=== PATIENT | male | born 1950 | race Caucasian/White ===

== ENCOUNTER → 2019-06-24 07:32 | Outpatient (BNVA) | payer MEDICARE, SELFPAY | PROVIDERS: Family Provider Family Medicine; PCP Family Medicine; Visit Provider Psychiatry & Neurology Psychiatry | DX: F33.42 Major depressive disorder, recurrent, in full remission (principal); F41.0 Panic disorder [episodic paroxysmal anxiety] | CPT/HCPCS: 99213 ==

== ENCOUNTER → 2020-01-12 07:30 | Outpatient (BNVA) | payer MEDICARE, SELFPAY | PROVIDERS: Family Provider Family Medicine; PCP Family Medicine; Visit Provider Psychiatry & Neurology Psychiatry | DX: F33.42 Major depressive disorder, recurrent, in full remission (principal); F41.0 Panic disorder [episodic paroxysmal anxiety] | CPT/HCPCS: 99213 ==

== ENCOUNTER → 2020-02-27 10:10 | Outpatient (BNVA) | payer MEDICARE, OTHER, SELFPAY | PROVIDERS: Family Provider Family Medicine; PCP Family Medicine; Referring Provider Family Medicine; Visit Provider Urology | DX: R33.8 Other retention of urine (principal); R31.0 Gross hematuria; N52.9 Male erectile dysfunction, unspecified; R36.1 Hematospermia; N50.811 Right testicular pain; N50.812 Left testicular pain | CPT/HCPCS: 81003 ==

== ENCOUNTER 2020-06-14 11:02 | Outpatient (CLI) | payer MEDICARE, SELFPAY ==
[2020-06-14 14:38] LABS: Immunoglobulin IGA 134 mg/dL (70-400); Immunoglobulin IGG 1831 mg/dL (700-1600); Immunoglobulin IGM 35 mg/dL (40-230); Lactate Dehydrogenase 124 U/L (135-225)
--- NOTE | 2020-06-14 18:26 | ONC CON_ITS ---
Dr. Kaur New Patient Note Patient: Waqar Moreno Unit #: [id number]: 1950 Dicatated By: Erasmo Kaur M.D.Date of Visit: June 14, 2020 Onc MED New Patient/Consult Referring Physician: Dr. Pablito Russell M.D. History of Present Illness: Mr. Waqar Moreno, is a 69-year-old gentleman with newly diagnosed monoclonal gammopathy, as per patient and his he applied for life insurance and as a part of medical checkup his lab work-up showed elevated globulin level based on that his life insurance was denied and patient was asked to see his primary care and as a part of evaluation patient underwent serum protein electrophoresis and immunofixation on April 22, 2020 which confirmed monoclonal protein identified in the gamma region and immunofixation confirmed monoclonal IgG kappa protein and serum light chain assay shows kappa free light chain 22.82, lambda free chain 7.59 and kappa/lambda ratio was 3.01 which is elevated 24-hour urine protein collected on April 28, 2020 shows monoclonal protein identified in the gamma region, too faint to qualify. His CMP done on April 22, 2020 showed creatinine 1.11, calcium 8.7 and remaining electrolytes and LFTs within normal range. Patient denies any night sweats, denies any weight loss, denies any recurrent fever, his past medical history significant for chronic back pain due to work-related injury sustained in 2002, since then he has undergone 5 back surgeries, without much improvement no on chronic pain management. His past medical history significant for acquired hypothyroidism, essential hypertension, mixed hyperlipidemia Past medical history Past Medical History: Mr. Moreno's medical history consists of anxiety, chronic pain syndrome, degenerative disease of the spine, depression, gastroesophageal reflux disease, hyperlipidemia, hypertension, hypothyroidism, lumbar sponylosis, and vitamin d deficiency. Past Surgical History: Mr. Moreno's surgical/procedural history consists of laminectomy. Medications: ALPRAZolam 1 Tablet (of 1 mg) Oral PRN, Euthyrox 1 Tablet (of 50 mcg) Oral daily, Lisinopril 1 Tablet (of 10 mg) Oral daily PRN, Lovastatin 1 Tablet Oral daily, Omeprazole 1 Capsule (of 20 mg) Capsule Delayed Release Oral, oxyCODONE HCl 1 Tablet (of 10 mg) Oral PRN Allergies: HYDROcodone-Acetaminophen, HYDROmorphone HCl, and Morphine Sulfate. Social History: Mr. Moreno is and he is a disabled. Mr. Moreno no longer smokes. He has no history of drinking. Mr. Moreno reports the following support systems: lives with spouse, significant other, family, or friends. Family History: Mr. Moreno's mother at age 93: stroke. Mr. Moreno's father at age 73. Review Of Symptoms: Review of Systems is not available for this patient. Vital Signs: Performed on June 14, 2020 11:50: 8, 8, 28.74, 2.04 sq.m, 69 in, 97 %, 77 /min, 18 /min, 106/74 mm(hg), 97.5 F (LOW), and 194.6 lbs (HIGH). Performance Status: 2 - Ambulatory/capable of all self-care, unable to perform any work activities. Up and about more than 50% of waking hours. (ECOG) Physical Examination: ENMT - No mouth sores, no thrush, no jaundice, no cervical lymphadenopathy, No axillary lymphadenopathy, Respiratory - Lungs are clear to auscultation, Cardiovascular - Regular rate and rhythm of heart, Abdomen - Soft, bowel sounds present, Extremities - No visible edema. Lab/Imaging: Most recent lab results are not available for this patient. Impression: Monoclonal gammopathy per SPEP/immunofixation done on April 22, 2020 which confirmed monoclonal protein in the gamma region and immunofixation confirmed IgG kappa protein type, serum light chain assay confirmed elevated kappa free chain at 22.82 normal being 3.32-19.40, lambda free chain 7.59, kappa/lambda ratio 3.01 which is elevated as normal being 0.26-1.65. CMP done on April 22, 2020 showed normal values, Etiology unclear could be early plasma cell disorder or due to chronic inflammation or idiopathic or lymphoproliferative disorder like lymphoplasmacytic lymphoma Chronic back pain due to work-related injury in 2002 status post multiple back surgeries none chronic pain management Hypothyroidism Essential hypertension GERD Plan: Discussed with patient regarding his labs and causes of abnormal serum protein electrophoresis and abnormal serum light chain assay which could be due to underlying plasma cell disorder like plasmacytoma or multiple myeloma or amyloidosis or chronic inflammation or idiopathic or lymphoproliferative disorder like lymphoplasmacytic lymphoma., At this point we will proceed with bone survey and also schedule him for bone marrow biopsy and bone marrow confirmed increased plasma cells then will consider CT PET scan. In the meantime we will check quantitative immunoglobulins, serum LDH, beta-2 microglobulin level Patient return to clinic 1 week after bone marrow evaluation with CBC CMP Signed By: Erasmo Kaur M.D. <<Signature on File>>
[2020-06-15 07:47] LABS: PROTEIN, TOTAL 7.7 g/dL (6.1-8.1)
[2020-06-15 13:12] LABS: KAPPA LIGHT CHAIN, FREE, SERUM 30.2 mg/L (3.3-19.4); KAPPA/LAMBDA LIGHT CHAINS FREE 7.55 (0.26-1.65)
[2020-06-15 13:48] LABS: ABNORMAL PROTEIN BAND 1 1.5 g/dL (NONE DETECTED); ALBUMIN 4.3 g/dL (3.8-4.8); ALPHA 1 GLOBULIN 0.3 g/dL (0.2-0.3); ALPHA 2 GLOBULIN 0.7 g/dL (0.5-0.9); BETA 1 GLOBULIN 0.4 g/dL (0.4-0.6); BETA 2 GLOBULIN 0.3 g/dL (0.2-0.5); GAMMA GLOBULIN 1.7 g/dL (0.8-1.7)
== END 2020-06-14 11:03 | disposition home or self-care (01) ==
PROVIDERS: Family Provider Family Medicine; PCP Family Medicine; Visit Provider Internal Medicine Hematology & Oncology
DX: D47.2 Monoclonal gammopathy (principal); G89.29 Other chronic pain; M54.5 Low back pain; E03.9 Hypothyroidism, unspecified; I10 Essential (primary) hypertension; K21.9 Gastro-esophageal reflux disease without esophagitis; Z79.899 Other long term (current) drug therapy
CPT/HCPCS: 36415; 82784; 83615; 83883; 84155; 84165; 99204

== ENCOUNTER → 2020-06-24 07:55 | Outpatient (BNVA) | payer MEDICARE, SELFPAY | PROVIDERS: Family Provider Family Medicine; PCP Family Medicine; Visit Provider Psychiatry & Neurology Psychiatry | DX: F33.42 Major depressive disorder, recurrent, in full remission (principal); F41.0 Panic disorder [episodic paroxysmal anxiety] | CPT/HCPCS: 99214 ==

== ENCOUNTER 2020-06-28 09:24 | Outpatient (CLI) | payer MEDICARE, SELFPAY ==
--- NOTE | 2020-06-28 09:33 | XRR_ITS ---
PROCEDURE INFORMATION: Exam: XR Osseous Survey; Complete Axial And Appendicular Skeleton Exam date and time: 06/28/2020 9:40 AM Age: 69 years old Clinical indication: Condition or disease; Condition/disease: Monoclonal gammopathy; Prior surgery; Surgery type: Lumbar TECHNIQUE: Imaging protocol: Radiological examination. Complete osseous survey. Axial and appendicular skeleton. COMPARISON: No relevant prior studies available. FINDINGS: Skull: Normal Cervical spine: Diffuse degenerative disc disease. No lytic process. Chest/thorax including ribs: Unremarkable. Thoracic spine: Degenerative changes throughout. No lytic process. Lumbar spine:surgical plate and pedicle screws L3, L4 and L5. Interbody fusion L4-L5. No lytic process visualized. Pelvis: Surgical fusion of the sacroiliac joints. No lytic process. Right and left femur: Normal. No lytic process. Right and left humerus: Normal. No lytic process. XR/XR bone survey* [id number] IMPRESSION: No lytic process.
== END 2020-06-28 09:25 | disposition home or self-care (01) ==
LOC: RAD 09:27
PROVIDERS: PCP Family Medicine; Visit Provider Internal Medicine Hematology & Oncology
DX: D47.2 Monoclonal gammopathy (principal)
CPT/HCPCS: 77075

== ENCOUNTER 2020-07-06 09:19 | Day surgery (SDC) | payer MEDICARE, SELFPAY ==
[2020-07-02 13:13] VITALS: BMI 29.0
--- NOTE | 2020-07-06 09:50 | ANES.PREANE2 ---
Pre-Anesthetic Assessment Pre-Anesthetic Assessment: Height/Weight: Height 1.75 m Weight 89.358 kg Preop Diagnosis: leukocytosis Proposed Procedure: Operation Date: 07/06/20 11:00 Proposed Procedures p Bone Marrow Biospy With Aspiration(Not Applicable) - Erasmo Kaur MD Familial anesthetic complications: PONV Was Beta Lisbeth taken within 24 hours: N/A Was Clonidine taken within 24 hours: N/A Last intake: > 8hrs Social: Social History: No alcohol and No tobacco Exam: Pre-Anes Outpt Exam: alert, oriented x 3, clear to auscultation bilaterally and regular rate & rhythm Airway: Cervical ROM: WNL (cervical disc disease) MP: 3 Dentition: Partials Additional comments: caban CV/HEM: CV/HEM: HTN GI: GI: GERD Metabolic: Metabolic: Hyperlipidemia and Thyroid Musc/skel: Musc/skel: Lower Back Pain and OA/DJD Anesthetic Plan: ASA status: 3 Anesthesia: MAC Risk of > 500 ml blood loss (7ml/kg in children): No PFSH Anesthesia PFSH: Medical History (Updated 02/28/20 @ 09:34 by Karson Coe MD) Erectile dysfunction Gross hematuria Hematospermia Major depression, recurrent, full remission Pain in both testicles Panic disorder Renal cyst Surgical History (Updated 02/28/20 @ 09:34 by Karson Coe MD) H/O elbow surgery LEFT H/O inguinal hernia repair BILATERAL History of back surgery X3 Hx of appendectomy Hx of cholecystectomy Family History Father , AT AGE 73 Renal failure Mother , AT AGE 93 Stroke Social History Smoking and tobacco status: former smoker Alcohol intake: current Alcohol intake frequency: holidays/special occasions only Marital status: Current occupational status: retired and disabled History of recent travel: No Data Anesthesia Cardiac Studies: No Data to Display
[2020-07-06 11:18] VITALS: BP 115/83; PULSE 72; RESP 18; TEMP 36.5; O2SAT 95
[2020-07-06] MEDS: sodium chloride 0.9% 1,000 ML 30 ML IV (11:21)
[2020-07-06 11:45] LABS: Basophils % 0.7 %; Eosinophils % 0.9 %; Hematocrit 45.4 % (42.0-52.0); Hemoglobin 15.5 g/dL (11.7-16.6); Lymphocytes # 1.6 10^3/uL (0.8-4.8); Lymphocytes % 37.6 %; Mean Corpuscular HGB Conc 34.1 g/dL (30.0-36.0); Mean Corpuscular Hemoglobin 30.6 pg (28.0-34.0); Mean Corpuscular Volume 89.5 fL (80-94); Mean Platelet Volume 10.5 fL (7.4-10.4); Monocytes # 0.4 10^3/uL (0.2-0.9); Monocytes % 10.1 %; Neutrophils # 2.19 10^3/uL (1.8-7.7); Neutrophils % 50.5 %; Nucleated Red Blood Cells % 0 %; Platelet Count 158 10^3/cmm (130-400); Red Blood Count 5.07 10^6/uL (4.1-5.3); Red Cell Distribution Width 12.4 % (12.1-15.1); White Blood Count 4.3 10^3/uL (4.0-10.0)
--- NOTE | 2020-07-06 16:15 | PM.BMB ---
Bone Marrow Biopsy Bone Marrow Biopsy: I was consulted by [] office regarding bone marrow biopsy on []. Briefly, the patient is a [] year old [] with []. In the Outpatient Services Department, with nursing staff and laboratory technologists in attendance, the procedure was discussed with the patient. Appropriate consent form had been signed. Appropriate alternatives, benefits and risks of procedure were discussed with the patient and he was pre-operatively assessed with a history and physical by myself and cleared for the biopsy procedure. The patient did request IV sedation and that was provided by the Anesthesia Department. Under aseptic condition right posterior iliac area was cleaned and prepped, local anesthesia was given and about 10 cc of bone marrow aspirate and core biopsy was obtained, patient tolerated procedure well, specimen was sent for routine histopathology and myeloma panel and flow cytometry/cytogenetics. Postprocedure nursing instructions were given. Thank you for allowing me to participate in this patient's care and diagnosis. 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
[2020-07-06 16:19] VITALS: BP 111/79; PULSE 70; RESP 16; TEMP 36.1; O2SAT 95
[2020-07-06 16:30] VITALS: BP 115/86; PULSE 64; RESP 18; O2SAT 96
--- NOTE | 2020-07-06 17:08 | ANE.PACU2 ---
Inpatient post-anesthesia follow up: Airway intact: Yes Vital signs: Temperature 97 F Pulse Rate 64 Respiratory Rate 18 Blood Pressure 115/86 Pulse Oximetry 96 Oxygen Delivery Me thod Room Air Oxygen Flow Rate Fraction of Inspir ed Oxygen Hydration adequate: Yes Nausea and vomiting: No Pain level: 1 Mental status: Baseline
[2020-07-08 06:02] LABS: Miscellaneous Test See Scanned Lab Rpt
== END 2020-07-06 16:40 | disposition home or self-care (01) ==
PROVIDERS: PCP Family Medicine; Visit Provider Internal Medicine Hematology & Oncology
PROC: 07DT3ZX Extraction of Bone Marrow, Percutaneous Approach, Diagnostic (ICD-10-PCS; CPT 38222; principal; 2020-07-06 11:00)
DX: D72.829 Elevated white blood cell count, unspecified (principal); I10 Essential (primary) hypertension; K21.9 Gastro-esophageal reflux disease without esophagitis; E78.5 Hyperlipidemia, unspecified; Z87.891 Personal history of nicotine dependence
CPT/HCPCS: 36415; 38222; 85025; 88237; 88264; 88305; 88374; 96360; 96361; J2704; J3490; J7030

== ENCOUNTER 2020-07-30 07:38 | Outpatient (CLI) | payer MEDICARE, SELFPAY ==
--- NOTE | 2020-07-30 12:32 | ONC FU_ITS ---
Dr. Kaur follow up note Patient: Waqar Moreno Unit #: [id number]: 1950 Dicatated By: Erasmo Kaur M.D.Date of Visit:Jul 30, 2020 Onc Med Follow-up/Prog Note History of Present Illness: Mr. Waqar Moreno, is a 70-year-old gentleman with newly diagnosed monoclonal gammopathy, as per patient and his he applied for life insurance and as a part of medical checkup his lab work-up showed elevated globulin level based on that his life insurance was denied and patient was asked to see his primary care and as a part of evaluation patient underwent serum protein electrophoresis and immunofixation on April 22, 2020 which confirmed monoclonal protein identified in the gamma region and immunofixation confirmed monoclonal IgG kappa protein and serum light chain assay shows kappa free light chain 22.82, lambda free chain 7.59 and kappa/lambda ratio was 3.01 which is elevated 24-hour urine protein collected on April 28, 2020 shows monoclonal protein identified in the gamma region, too faint to qualify. His CMP done on April 22, 2020 showed creatinine 1.11, calcium 8.7 and remaining electrolytes and LFTs within normal range. Patient denies any night sweats, denies any weight loss, denies any recurrent fever, his past medical history significant for chronic back pain due to work-related injury sustained in 2002, since then he has undergone 5 back surgeries, without much improvement no on chronic pain management. His past medical history significant for acquired hypothyroidism, essential hypertension, mixed hyperlipidemia Bone marrow evaluation done on July 06, 2020 shows presence of trilineage hematopoiesis and does not demonstrate significant increased plasma cells, flow cytometry showed no overtly aberrant myeloid, lymphoid or plasma cell population. 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 Repeat SPEP on July 28, 2020 showed restricted M spike in the gamma region, immunofixation consistent with IgG type, quantitative immunoglobulin showed IgG 1792 normal being 600-1540, IgM 34 IgA 134, Serum light chain assay showed kappa light chain 27.3 normal being 3.3-19.4, lambda 4.4 kappa/lambda ratio 6.20, LDH 96 Came for follow-up, denies any specific complaints, no fever chills, no nausea or vomiting, no diarrhea or constipation, no new bony pains, patient tolerated bone marrow evaluation well, now he is here to discuss the findings and further planning Medications: ALPRAZolam 1 Tablet (of 1 mg) Oral PRN, Baclofen (10 mg) Tablet Oral b.i.d., Euthyrox 1 Tablet (of 50 mcg) Oral daily, Lisinopril 1 Tablet (of 10 mg) Oral daily PRN, Lovastatin 1 Tablet Oral daily, Omeprazole 1 Capsule (of 20 mg) Capsule Delayed Release Oral, oxyCODONE HCl 1 Tablet (of 10 mg) Oral PRN Allergies: HYDROcodone-Acetaminophen, HYDROmorphone HCl, and Morphine Sulfate. Review of Systems: Review of Systems is not available for this patient. Vital Signs: Performed on Jul 30, 2020 08:27 Height - 69.00 in Weight - 192.6 lbs (LOW) BSA - 2.03 sq.m BMI - 28.44 Temperature - 96.7 F (LOW) Pulse - 58 /min (LOW) Respiration - 18 /min BP - 126/85 mm(hg) O2 Sat - 97 % Pain - 7 Fatigue - 6 Performance Status: 0 - Fully active, able to carry on all predisease activities without restrictions. (ECOG) Physical Examination: ENMT - No mouth sores, no thrush, no jaundice, No lymphadenopathy, Respiratory - Lungs are clear to auscultation, Cardiovascular - Regular rate and rhythm of heart, Abdomen - Soft, bowel sounds present, Extremities - No visible edema. Lab/Imaging: Most recent lab results are not available for this patient. Impression: Monoclonal gammopathy per SPEP/immunofixation done on April 22, 2020 which confirmed monoclonal protein in the gamma region and immunofixation confirmed IgG kappa protein type, serum light chain assay confirmed elevated kappa free chain at 22.82 normal being 3.32-19.40, lambda free chain 7.59, kappa/lambda ratio 3.01 which is elevated as normal being 0.26-1.65. CMP done on April 22, 2020 showed normal values, Etiology unclear could be early plasma cell disorder or due to chronic inflammation or idiopathic or lymphoproliferative disorder like lymphoplasmacytic lymphoma Chronic back pain due to work-related injury in 2002 status post multiple back surgeries none chronic pain management Hypothyroidism Essential hypertension GERD Plan: Discussed with patient regarding his labs, quantitative immunoglobulin levels shows mildly elevated IgG level, mildly low IgM, repeat SPEP shows persistent M spike in gamma region, serum light chain assay shows mildly elevated serum kappa light chains and ratio at 6.2 0 Clinically, patient doing well with no new signs symptoms, his bone marrow evaluation showed as per report suboptimal bone marrow although as per tech it was sufficient so we will discuss with pathology regarding further evaluation but report mention presence of trilineage hematopoiesis and does not demonstrate significant increase in plasma cells, flow cytometry showed no abnormality, cytogenetics shows loss of Y chromosome and FISH for myeloma shows negative for IGH/MAF fusion So based on bone marrow findings as well as lab work-up, patient has persistent M spike as well as abnormal serum light chain assay which shows ratio is around 6.2 so clinically, it appears he may have early or evolving plasma cell disorder but bone marrow evaluation showed no increase in plasma cell other possibility could be decreased excretion of serum light chains because of mild renal insufficiency, other possibility could be abnormal serum light chain due to chronic inflammation as patient has underlying arthritis and now being evaluated by senior health consultant. Patient has no B symptoms and No peripheral lymphadenopathy so lymphoproliferative disorder is less likely but will monitor At this point no further work-up rather observation patient will return to clinic in 3 months with CBC CMP SPEP/immunofixation/serum light chain assay Signed By: Erasmo Kaur M.D. <<Signature on File>>
== END 2020-07-30 07:39 | disposition home or self-care (01) ==
PROVIDERS: PCP Family Medicine; Visit Provider Internal Medicine Hematology & Oncology
DX: D47.2 Monoclonal gammopathy (principal); R74.8 Abnormal levels of other serum enzymes; M54.5 Low back pain; G89.29 Other chronic pain; E03.9 Hypothyroidism, unspecified; I10 Essential (primary) hypertension; K21.9 Gastro-esophageal reflux disease without esophagitis; Z79.899 Other long term (current) drug therapy
CPT/HCPCS: 99214

== ENCOUNTER → 2020-08-12 13:08 | Outpatient (BNVA) | payer MEDICARE, SELFPAY | PROVIDERS: PCP Family Medicine; Referring Provider Family Medicine; Visit Provider Orthopaedic Surgery | DX: M54.2 Cervicalgia (principal); M47.899 Other spondylosis, site unspecified | CPT/HCPCS: 72050 ==

== ENCOUNTER → 2020-08-20 08:23 | Outpatient (BNVA) | payer MEDICARE, SELFPAY | PROVIDERS: PCP Family Medicine; Referring Provider Orthopaedic Surgery; Visit Provider Anesthesiology Pain Medicine | DX: G89.29 Other chronic pain (principal); M48.02 Spinal stenosis, cervical region; M54.12 Radiculopathy, cervical region; M43.26 Fusion of spine, lumbar region; M54.9 Dorsalgia, unspecified; Z79.891 Long term (current) use of opiate analgesic | CPT/HCPCS: 99205 ==

== ENCOUNTER → 2020-10-19 10:41 | Outpatient (BNVA) | payer MEDICARE, SELFPAY | PROVIDERS: PCP Family Medicine; Visit Provider Internal Medicine Rheumatology | DX: M19.90 Unspecified osteoarthritis, unspecified site (principal); D89.2 Hypergammaglobulinemia, unspecified; Z79.899 Other long term (current) drug therapy; Z11.59 Encounter for screening for other viral diseases; Z11.1 Encounter for screening for respiratory tuberculosis; Z71.89 Other specified counseling; M54.5 Low back pain | CPT/HCPCS: 99204 ==

== ENCOUNTER 2020-10-19 12:51 | Outpatient (CLI) | payer MEDICARE, SELFPAY ==
--- NOTE | 2020-10-19 12:57 | XRR_ITS ---
PROCEDURE INFORMATION: Exam: XR Chest Exam date and time: 10/19/2020 12:57 PM Age: 70 years old Clinical indication: Other: Joint pain; Prior surgery; Surgery type: Back; Patient HX: --c/o bilat foot/hand pain for years. Checking for ra. ; Additional info: Z79.899 - other long term care administrator (current) drug therapy TECHNIQUE: Imaging protocol: XR of the chest. Views: 2 views. COMPARISON: No relevant prior studies available. FINDINGS: Lungs: No pneumonia or pulmonary edema. Pleural spaces: No pleural effusion or pneumothorax. Heart/Mediastinum: The heart is not enlarged. Vasculature: The descending thoracic aorta is tortuous. Bones/joints: Multilevel disc degeneration in the thoracic spine. Soft tissues: Small left epicardial fat pad. XR/XR chest 2V* [id number] IMPRESSION: No acute finding.
--- NOTE | 2020-10-19 12:57 | XRR_ITS ---
PROCEDURE INFORMATION: Exam: XR Right Foot Exam date and time: 10/19/2020 12:57 PM Age: 70 years old Clinical indication: Pain; Foot; Bilateral; Additional info: Z79.899 - other custodial (current) drug therapy TECHNIQUE: Imaging protocol: XR Right foot. Views: 3 or more views. COMPARISON: No relevant prior studies available. FINDINGS: Bones/joints: There is joint space narrowing, with near loss of the joint space, at the 1st metatarsophalangeal joint. This is associated with subchondral cyst formation and osteophyte formation. No fracture. No dislocation. Soft tissues: No acute soft tissue abnormality. 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
--- NOTE | 2020-10-19 12:57 | XRR_ITS ---
PROCEDURE INFORMATION: Exam: XR Left Hand Exam date and time: 10/19/2020 12:57 PM Age: 70 years old Clinical indication: Pain; Hand; Bilateral; Additional info: Z79.899 - other halfway (current) drug therapy TECHNIQUE: Imaging protocol: XR Left hand. Views: 3 or more views. COMPARISON: No relevant prior studies available. FINDINGS: Bones/joints: No fracture. No dislocation. There is joint space narrowing with subchondral sclerosis at the STT joint. Mild osteophyte formation at the 1st metacarpophalangeal joint and 2nd distal interphalangeal joint. Soft tissues: No acute soft tissue abnormality. XR/XR hand LT min 3V* [id number] IMPRESSION: Mild osteoarthritis.
--- NOTE | 2020-10-19 12:57 | XRR_ITS ---
PROCEDURE INFORMATION: Exam: XR Left Foot Exam date and time: 10/19/2020 12:57 PM Age: 70 years old Clinical indication: Pain; Foot; Bilateral; Additional info: Z79.899 - other long-term (current) drug therapy TECHNIQUE: Imaging protocol: XR Left foot. Views: 3 or more views. COMPARISON: No relevant prior studies available. FINDINGS: Bones/joints: No fracture. No dislocation. Minimal degenerative change at the 1st metatarsophalangeal joint. Soft tissues: No acute soft tissue abnormality. XR/XR foot LT min 3V* [id number] IMPRESSION: Minimal 1st metatarsophalangeal joint osteoarthritis.
--- NOTE | 2020-10-19 12:57 | XRR_ITS ---
PROCEDURE INFORMATION: Exam: XR Right Hand Exam date and time: 10/19/2020 12:57 PM Age: 70 years old Clinical indication: Pain; Hand; Bilateral; Additional info: Z79.899 - other retirement (current) drug therapy TECHNIQUE: Imaging protocol: XR Right hand. Views: 3 or more views. COMPARISON: No relevant prior studies available. FINDINGS: Bones/joints: No fracture. No dislocation. Subchondral cyst formation at the 1st carpometacarpal joint, 3rd proximal interphalangeal joint, and 1st metacarpophalangeal joint. Tiny osteophytes at the interphalangeal joint of the thumb. Soft tissues: No acute soft tissue abnormality. XR/XR hand RT min 3V* [id number] IMPRESSION: Mild osteoarthritis.
[2020-10-19 14:18] LABS: Basophils % 0.6 %; Eosinophils # 0.1 10^3/uL (0.0-0.8); Eosinophils % 1.9 %; Hemoglobin 15.3 g/dL (11.7-16.6); Lymphocytes # 2.4 10^3/uL (0.8-4.8); Lymphocytes % 46.4 %; Mean Corpuscular Volume 94.1 fl (80-94); Monocytes # 0.5 10^3/uL (0.2-0.9); Monocytes % 8.6 %; Neutrophils % 42.3 %; Nucleated Red Blood Cells % 0 %; Platelet Count 172 10^3/cmm (130-400); Red Blood Count 4.78 10^6/uL (4.1-5.3); White Blood Count 5.2 10^3/uL (4.0-10.0)
[2020-10-19 14:45] LABS: Alanine Aminotransferase 8 U/L (0-41); Albumin Level 4.3 g/dL (3.5-5.2); Alkaline Phosphatase 55 IU/L (40-130); Aspartate Amino Transferase 10 U/L (0-40); C Reactive Protein 1.2 mg/L (0.0-4.9); Globulin 3.5 g/dL (1.3-4.6); Glomerular Filtration Rate 66.6 mL/min (90-130); Total Bilirubin 0.4 mg/dL (0.15-1.2); Total Protein 7.8 g/dL (6.6-8.7)
[2020-10-19 15:04] LABS: Hepatitis B Core AB, Total Non-Reactive (Nonreactive); Hepatitis B Surface Antigen Non-Reactive (Nonreactive); Hepatitis C Virus Antibody Non-Reactive (Nonreactive)
[2020-10-19 15:16] LABS: Erythrocyte Sedimentation Rate 7 mm/hr (0-10)
[2020-10-21 10:33] LABS: HLA-B27 NEGATIVE (NEGATIVE)
[2020-10-21 14:53] LABS: Quantiferon Mitogen 8.31 IU/mL; Quantiferon Nil 0.02 IU/mL; Quantiferon TB Gold NEGATIVE (NEGATIVE)
== END 2020-10-19 12:52 | disposition home or self-care (01) ==
LOC: RAD 12:55
PROVIDERS: PCP Family Medicine; Visit Provider Internal Medicine Rheumatology
DX: M19.90 Unspecified osteoarthritis, unspecified site (principal); M45.9 Ankylosing spondylitis of unspecified sites in spine; Z79.899 Other long term (current) drug therapy; Z11.59 Encounter for screening for other viral diseases; Z11.1 Encounter for screening for respiratory tuberculosis
CPT/HCPCS: 36415; 71046; 73130; 73630; 80076; 82565; 85025; 85651; 86140; 86480; 86704; 86803; 86812; 87340

== ENCOUNTER → 2020-10-20 12:58 | Outpatient (BNVA) | payer MEDICARE, SELFPAY | PROVIDERS: PCP Family Medicine; Visit Provider Anesthesiology Pain Medicine | DX: G89.29 Other chronic pain (principal); M54.12 Radiculopathy, cervical region; M48.02 Spinal stenosis, cervical region; Z79.891 Long term (current) use of opiate analgesic | CPT/HCPCS: 62321; J1100 ==

== ENCOUNTER → 2020-12-06 11:12 | Outpatient (BNVA) | payer MEDICARE, SELFPAY | PROVIDERS: PCP Family Medicine; Referring Provider Family Medicine; Visit Provider Orthopaedic Surgery | DX: S49.91XA Unspecified injury of right shoulder and upper arm, initial encounter (principal); X58.XXXA Exposure to other specified factors, initial encounter | CPT/HCPCS: 73030 ==

== ENCOUNTER → 2020-12-09 07:44 | Outpatient (BNVA) | payer MEDICARE, SELFPAY | PROVIDERS: PCP Family Medicine; Visit Provider Psychiatry & Neurology Psychiatry | DX: F33.42 Major depressive disorder, recurrent, in full remission (principal); F41.0 Panic disorder [episodic paroxysmal anxiety] | CPT/HCPCS: 99213 ==

== ENCOUNTER → 2020-12-23 11:08 | Outpatient (BNVA) | payer MEDICARE, SELFPAY | PROVIDERS: PCP Family Medicine; Visit Provider Anesthesiology Pain Medicine | DX: G89.29 Other chronic pain (principal); M48.02 Spinal stenosis, cervical region; M54.12 Radiculopathy, cervical region; M79.604 Pain in right leg; M79.605 Pain in left leg; Z79.891 Long term (current) use of opiate analgesic; Z98.1 Arthrodesis status | CPT/HCPCS: 99214 ==

== ENCOUNTER 2020-12-25 15:15 | Inpatient (IN) | payer MEDICARE, SELFPAY ==
[2020-12-25 15:34] VITALS: BP 126/84; PULSE 61; RESP 18; TEMP 36.9; O2SAT 100; BMI 28.8
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
--- NOTE | 2020-12-25 16:48 | ECG_ITS ---
[facility] Test Date: 2020-12-25 Pat Name: Waqar Moreno Department: Room: Gender: Male Waist Presser: : 1950 Requested By: Michael Steven Order Number: [id number] Torres MD: Isatu Arrington M.D. Measurements Intervals [place] Rate: 70 P: 68 [place]: 196 QRS: 49 QRSD: 89 T: 71 QT: 386 QTc: 419 Interpretive Statements SINUS RHYTHM No previous ECG available for comparison Electronically Signed On 12-26-2020 13:24:47 TAPE DUPLICATOR by Isatu Arrington M.D. [id number]
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
[2020-12-25 17:22] LABS: Basophils % 0.3 %; Eosinophils # 0.1 10^3/uL (0.0-0.8); Eosinophils % 0.5 %; Lymphocytes # 1.2 10^3/uL (0.8-4.8); Lymphocytes % 11.8 %; Mean Corpuscular HGB Conc 33.3 g/dL (30.0-36.0); Mean Corpuscular Hemoglobin 31.7 pg (28.0-34.0); Mean Corpuscular Volume 95.2 fl (80-94); Mean Platelet Volume 9.7 fL (7.4-10.4); Monocytes # 0.7 10^3/uL (0.2-0.9); Monocytes % 6.4 %; Neutrophils # 8.27 10^3/uL (1.8-7.7); Neutrophils % 80.5 %; Nucleated Red Blood Cells % 0 %; Platelet Count 138 10^3/cmm (130-400); Red Blood Count 4.41 10^6/uL (4.1-5.3); Red Cell Distribution Width 12.2 % (12.1-15.1); White Blood Count 10.3 10^3/uL (4.0-10.0)
[2020-12-25 17:47] LABS: Alanine Aminotransferase 7 U/L (0-41); Albumin Level 4.1 g/dL (3.5-5.2); Alkaline Phosphatase 50 IU/L (40-130); Anion Gap 15.3 (5-19); Aspartate Amino Transferase 12 U/L (0-40); Blood Urea Nitrogen 17 mg/dL (8-23); Calcium 8.5 mg/dL (8.5-10.5); Carbon Dioxide 27 mmol/L (22-29); Chloride 101 mmol/L (98-107); Globulin 3.2 g/dL (1.3-4.6); Glomerular Filtration Rate 66.6 mL/min (90-130); Glucose 100 mg/dL (65-115); Osmolality Calculated 290 mOsm/kg (285-295); Potassium 4.3 mmol/L (3.5-5.1); Sodium 139 mmol/L (136-145); Total Bilirubin 0.3 mg/dL (0.15-1.2); Total Protein 7.3 g/dL (6.6-8.7)
[2020-12-25] MEDS: iohexol 300 mg/mL 100 mL Btl IV (18:01)
[2020-12-25 18:18] LABS: SARS Covid-2 Antigen Negative (Negative)
[2020-12-25] MEDS: tetanus-dipt-pertussis 0.5 mL SDV IM (18:41)
[2020-12-25] MEDS: diphenhydrAMINE 50 mg/mL SDV 1mL 25 MG IVP (18:41)
[2020-12-25] MEDS: HYDROmorphone 1 mg/mL INJ 1 mL IVP (18:44)
[2020-12-25 19:43] LABS: Add Urine Microscopic? NO; Charge for UA Resulting for Rev
[2020-12-25] MEDS: lidocaine 1% INJ 20 mL INTRADERMA (19:49)
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
[2020-12-25 20:23] LABS: Bilirubin Urine Neg (Negative); Blood Urine Neg (Negative); Glucose Urine UA Norm (Normal); Ketones Urine 1+ (Negative); Leukocyte Esterase Urine Negative (Negative); Nitrate Urine Negative (Negative); Protein Urine Neg (Negative); Urine Appearance Clear (CLEAR); Urine Color Yellow (Yellow); Urobilinogen Urine Norm (Negative); pH Urine 5 (5-7)
--- NOTE | 2020-12-25 20:39 | PC.NURSE ---
Pt would like to be notified when surgery is scheduled.
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
[2020-12-25 21:08] VITALS: BP 126/84; PULSE 78; RESP 18; O2SAT 99
[2020-12-25 21:37] VITALS: BP 153/83; PULSE 73; RESP 17; TEMP 36.9; O2SAT 100
[2020-12-25] MEDS: sodium chloride 0.9% 1,000 ML 75 ML IV (22:08)
[2020-12-25] MEDS: gabapentin 300 mg Capsule PO (22:13)
[2020-12-25 23:00] VITALS: RESP 18
[2020-12-25] MEDS: oxyCODONE-APAP 10-325 mg Tablet 1 TAB PO (23:00)
[2020-12-26] VITALS (18 sets, daily range): BP systolic 99–156; BP diastolic 66–99; PULSE 75–110; RESP 10–18; TEMP 36.5–38.1; O2SAT 92–100
--- NOTE | 2020-12-26 | SCC_ITS ---
Procedure Done: Left IM nail for subtrochanteric femur fracture 87.7 seconds of fluoroscopic guidance, for a cumulative dose of 10.45 mGy, was provided to Dr. Parikh by the radiology department. C-arm images of the left femur were saved for the patient's permanent record. [facility]
[2020-12-26 07:05] LABS: Basophils % 0.7 %; Eosinophils # 0.1 10^3/uL (0.0-0.8); Eosinophils % 0.8 %; Hematocrit 36.6 % (42.0-52.0); Hemoglobin 12.4 g/dL (11.7-16.6); Lymphocytes # 1.6 10^3/uL (0.8-4.8); Lymphocytes % 27.2 %; Mean Corpuscular HGB Conc 33.9 g/dL (30.0-36.0); Mean Corpuscular Hemoglobin 32.2 pg (28.0-34.0); Mean Corpuscular Volume 95.1 fl (80-94); Mean Platelet Volume 10.3 fL (7.4-10.4); Monocytes # 0.6 10^3/uL (0.2-0.9); Monocytes % 10.3 %; Neutrophils # 3.68 10^3/uL (1.8-7.7); Neutrophils % 60.8 %; Nucleated Red Blood Cells % 0 %; Platelet Count 136 10^3/cmm (130-400); Red Blood Count 3.85 10^6/uL (4.1-5.3); Red Cell Distribution Width 12.4 % (12.1-15.1)
[2020-12-26 07:08] LABS: INR 1.07 (0.8-1.2); Partial Thromboplastin Time 29.3 SECONDS (23.9-36.7)
[2020-12-26 07:19] LABS: Anion Gap 13.7 (5-19); Blood Urea Nitrogen 14 mg/dL (8-23); Carbon Dioxide 27 mmol/L (22-29); Chloride 101 mmol/L (98-107); Glomerular Filtration Rate 96.1 mL/min (90-130); Glucose 116 mg/dL (65-115); Magnesium 1.7 mg/dL (1.7-2.3); Osmolality Calculated 287 mOsm/kg (285-295); Phosphorus 2.8 mg/dL (2.5-4.5); Potassium 3.7 mmol/L (3.5-5.1); Sodium 138 mmol/L (136-145)
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
--- NOTE | 2020-12-26 08:00 | ANES.PREANE2 ---
Pre-Anesthetic Assessment Pre-Anesthetic Assessment: Height/Weight: Height 1.75 m Weight 88.451 kg Temp Pulse Resp BP Pulse Ox 100.5 F H 75 18 146/99 98 12/26/20 07:25 12/26/20 07:25 12/26/20 07:25 12/26/20 07:25 12/26/20 07:25 Preop Diagnosis: leukocytosis Proposed Procedure: Operation Date: 12/26/20 08:20 Proposed Procedures p LEFT HIP NAIL(Left) - Luis H Kati, DO Familial anesthetic complications: None Was Beta Lisbeth taken within 24 hours: N/A Was Clonidine taken within 24 hours: N/A Last intake: Intake Last Liquid Date 12/25/20 Last Liquid Time 23:55 Last Solid Date 12/25/20 Last Solid Time 23:55 Social: Social History: No alcohol and No tobacco Exam: Pre-Anes Outpt Exam: alert, oriented x 3, clear to auscultation bilaterally and regular rate & rhythm Airway: Cervical ROM: WNL MP: 3 Dentition: Partials Additional comments: Full caban. Patient has bulging cervical discs, states has numbness in b/l fingers and will need to have surgery, R arm is unusable.: however these symptoms are NOT exacerbated or provoked by cervical extension CV/HEM: CV/HEM: HTN GI: GI: GERD Metabolic: Metabolic: Thyroid Musc/skel: Musc/skel: Lower Back Pain Comments: multiple MSK complaints d/t remote injuries - back, etc. Chronic pain Anesthetic Plan: ASA status: 2 Anesthesia: General Risk of > 500 ml blood loss (7ml/kg in children): No Meds/Allergies Current Medications: Current Medications Generic Name Dose Route Start Last Admin Trade Name Janes PRN Reason Stop Dose Admin Atorvastatin Calci um 20 mg 12/26/20 09:00 12/26/20 07:25 Atorvastatin 40 Mg Tablet PO Not Given DAILY MEGAN Gabapentin 300 mg 12/25/20 21:37 12/26/20 07:25 Gabapentin 300 M g Capsule PO Not Given TID MEGAN Sodium Chloride 1,000 mls @ 75 ml s/hr 12/25/20 21:37 12/25/20 22:08 Sodium Chloride 0.9% IV 75 mls/hr .[id number] MEGAN Administration Levothyroxine Sodi um 50 mcg 12/26/20 09:00 12/26/20 07:25 Levothyroxine 50 Mcg Tablet PO Not Given DAILY MEGAN Oxycodone/Acetamin ophen 1 tab 12/25/20 21:37 12/25/20 23:00 Oxycodone-Apap 1 0-325 Mg Tablet PO 1 tab TID PRN Administration pain Pantoprazole Sodiu m 40 mg 12/26/20 09:00 12/26/20 07:[address] 40 Mg Tablet PO Not Given DAILY MEGAN Trazodone HCl 300 mg 12/26/20 09:00 12/26/20 07:26 Trazodone 150 Mg Tablet PO Not Given DAILY MEGAN PFSH Anesthesia PFSH: Medical History Erectile dysfunction Gross hematuria Hematospermia High risk medication use Immunization counseling Inflammatory arthritis Major depression, recurrent, full remission Pain in both testicles Panic disorder Paraproteinemia Psychiatric care Renal cyst Surgical History H/O elbow surgery LEFT H/O inguinal hernia repair BILATERAL History of back surgery X3 Hx of appendectomy Hx of cholecystectomy Family History Father , AT AGE 73 Renal failure Mother , AT AGE 93 Stroke Other Cancer Rheumatoid arthritis Denies family history of Diabetes Lupus Chronic kidney disease (CKD) Lung disease Hypertension Social History Alcohol intake: current Alcohol intake frequency: holidays/special occasions only Marital status: Current occupational status: retired and disabled History of recent travel: No Data Anesthesia CBC & Chem 7: 12/26/20 05:56 12/26/20 05:56 Other Labs: Laboratory Results - last 48 hr 12/25/20 12/25/20 12/25/20 17:14 17:14 17:50 WBC 10.3 H RBC 4.41 Hgb 14.0 Hct 42.0 MCV 95.2 H MCH 31.7 MCHC 33.3 RDW 12.2 Plt Count 138 MPV 9.7 Neut % (Auto) 80.5 Lymph % (Auto) 11.8 [place] % (Auto) 6.4 Eos % (Auto) 0.5 Baso % (Auto) 0.3 Neut # (Auto) 8.27 H Lymph # (Auto) 1.2 [place] # (Auto) 0.7 Eos # (Auto) 0.1 Baso # (Auto) 0.0 Nucleated RBC % (auto) 0 Nucleated RBCs # 0.0 PT INR APTT Sodium 139 Potassium 4.3 Chloride 101 Carbon Dioxide 27 Anion Gap 15.3 BUN 17 Creatinine 1.1 GFR Calculation 66.6 L Glucose 100 Calculated Osmolality 290 Calcium 8.5 Phosphorus Magnesium Total Bilirubin 0.3 AST 12 ALT 7 Alkaline Phosphatase 50 Total Protein 7.3 Albumin 4.1 Globulin 3.2 Urine Color Urine Appearance Urine pH Ur Specific [place] Urine Protein Urine Glucose (UA) Urine Ketones Urine Blood Urine Nitrate Urine Bilirubin Urine Urobilinogen Ur Leukocyte Esterase SARS-CoV-2 Ag (Rapid) Negative 12/25/20 12/26/20 12/26/20 18:59 05:56 05:56 WBC 6.0 RBC 3.85 L Hgb 12.4 Hct 36.6 L MCV 95.1 H MCH 32.2 MCHC 33.9 RDW 12.4 Plt Count 136 MPV 10.3 Neut % (Auto) 60.8 Lymph % (Auto) 27.2 [place] % (Auto) 10.3 Eos % (Auto) 0.8 Baso % (Auto) 0.7 Neut # (Auto) 3.68 Lymph # (Auto) 1.6 [place] # (Auto) 0.6 Eos # (Auto) 0.1 Baso # (Auto) 0.0 Nucleated RBC % (auto) 0 Nucleated RBCs # 0.0 PT 14.20 INR 1.07 APTT 29.3 Sodium Potassium Chloride Carbon Dioxide Anion Gap BUN Creatinine GFR Calculation Glucose Calculated Osmolality Calcium Phosphorus Magnesium Total Bilirubin AST ALT Alkaline Phosphatase Total Protein Albumin Globulin Urine Color Yellow Urine Appearance Clear Urine pH 5 Ur Specific [place] 1.020 Urine Protein Neg Urine Glucose (UA) Norm Urine Ketones 1+ H Urine Blood Neg Urine Nitrate Negative Urine Bilirubin Neg Urine Urobilinogen Norm Ur Leukocyte Esterase Negative SARS-CoV-2 Ag (Rapid) 12/26/20 05:56 WBC RBC Hgb Hct MCV MCH MCHC RDW Plt Count MPV Neut % (Auto) Lymph % (Auto) [place] % (Auto) Eos % (Auto) Baso % (Auto) Neut # (Auto) Lymph # (Auto) [place] # (Auto) Eos # (Auto) Baso # (Auto) Nucleated RBC % (auto) Nucleated RBCs # PT INR APTT Sodium 138 Potassium 3.7 Chloride 101 Carbon Dioxide 27 Anion Gap 13.7 BUN 14 Creatinine 0.8 GFR Calculation 96.1 Glucose 116 H Calculated Osmolality 287 Calcium 8.0 L Phosphorus 2.8 Magnesium 1.7 Total Bilirubin AST ALT Alkaline Phosphatase Total Protein Albumin Globulin Urine Color Urine Appearance Urine pH Ur Specific [place] Urine Protein Urine Glucose (UA) Urine Ketones Urine Blood Urine Nitrate Urine Bilirubin Urine Urobilinogen Ur Leukocyte Esterase SARS-CoV-2 Ag (Rapid) Cardiac Studies: No Data to Display
--- NOTE | 2020-12-26 09:13 | PM.OP ---
Operative Report Date of procedure: December 26, 2020 Pre-op Diagnosis: left subtrochanteric femur fracture Post-op diagnosis: same Procedure Done: Left IM nail for subtrochanteric femur fracture Surgeon: Luis Parikh Anesthesia: General Estimated blood loss (mL): 10 Condition: stable Disposition: PACU Procedure: Left IM nail for subtrochanteric femur fracture Patient brought the operative suite after undergoing anesthesia was placed onto the [place] table. The left leg was placed in a boot and attached to the [place] table. The right leg was placed on a pillow and coband to the other leg. All areas of impingement were well-padded. Traction and rotation were applied using C-arm guidance in order to facilitate reducing the subtrochanteric femur fracture. Once adequate reduction was had patient was then prepped and draped in normal sterile fashion. Skin incision was made proximal to the greater trochanter. Starting pin was inserted. Opening reamer was inserted and then the guidewire was placed. The nail length was measured to be 420. Canal was reamed to 13. A Artimi gamma nail size 11 length 420 was inserted. The lag screw pin was inserted into the center center position of the femoral head. 110 mm lag screw was placed. The locking bolts placed proximally. Attention was then brought to the distal end of the nail. 2 screws were placed into the distal locking holes. A 55 and 45 mm screw was placed. AP and lateral fluoroscopy ensured that the hardware and fracture were probe positions. Wounds were irrigated sterile dressings were applied after closing the wounds with Vicryl and linda.
--- NOTE | 2020-12-26 09:18 | XR_ITS ---
WS: [id number] Exam: XR femur LT min 2V* [id number] Date/Time of Exam: 12/26/2020 9:19 AM Reason For Exam: Left IM nail for subtrochanteric femur fracture Intraoperative C-arm images of the left femur are submitted for evaluation. There is internal orthopedic fixation involving a subtrochanteric fracture of the left femur. A long intramedullary erasmo and femoral neck impaction screw stabilize a fracture in good alignment for healin g. There is avulsion and separation of the lesser trochanter. XR/XR femur LT min 2V* [id number] IMPRESSION: 1. Satisfactory ORIF involving a subtrochanteric fracture of the left femur.
--- NOTE | 2020-12-26 09:52 | SUR.PHASEI ---
0912 pt awake alert talkative taking ice chips lt hip dressing x 3 D/I VSS milner to DD with yellow clear urine noted to tubing and bag. report called to floor , family updated by DR DOE and waiting in pt room.
--- NOTE | 2020-12-26 10:07 | PC.NURSE ---
1000 OR NOTE UP FROM OR VIA BED WITH BRANDAN RN AT SIDE - 023LNC - PT A&O - DENIES PAIN - AP RRR - LUNGS COARSE THROUGHOUT - ABD SOFT WITH NO DISTENTION - IV LEFT ARM WITH PUMP - X3 SITES TO LEFT LEG WITH PROXIMAL SITE NOTED TO HAVE SMALL AMOUNT OF SEROSANG DRAINAGE - 1ST ICE IN PLACE - PPP - [place] FOOT PUMPS IN PLACE - DR REYES CURRENTLY IN ROOM
[2020-12-26] MEDS: oxyCODONE-APAP 10-325 mg Tablet 1 TAB PO (10:40)
--- NOTE | 2020-12-26 11:32 | PM.PN ---
Subjective Subjective: Interval history: Seen and examined this morning. I saw him postop after his procedure. He is doing well denies any pain at the surgical site. States he is doing well. Vitals/I&O/Wt Last Vital Signs Temp 97.9 F 12/26/20 09:45 Pulse 96 12/26/20 09:45 Resp 18 12/26/20 10:40 BP 124/85 12/26/20 09:45 Pulse Ox 98 12/26/20 09:45 12/25/20 12/26/20 12/26/20 22:59 06:59 14:59 Intake Total 160 / 160 Output Total 200 / 200 40 / 40 Balance -200 / -200 120 / 120 Weight last 48 hrs Weight 88.451 kg Weight 88.451 kg Physical Exam Narrative: EXAM NARRATIVE: CONSTITUTIONAL: The patient is a normal appearing in no apparent distress. Alert oriented x3, family present at bedside. Seen postop. GENERAL: Patient in no acute distress. CARDIAC: Regular rate and rhythm. CHEST: Normal inspiratory effort, normal respiratory rate. Lungs clear to auscultation bilaterally. ABDOMEN: Soft and nontender. SKIN: Clear, warm and intact.. Neuro: Nonfocal exam. Did not check strength or sensation as patient got back from surgery 10 minutes ago. Left knee has sutures present in blood around the area. Surgical site covered with Band-Aid. Data : 12/26/20 05:56 12/26/20 05:56 A&P Assessment and plan (1) Closed intertrochanteric fracture of left hip: Status: Acute Qualifiers: Encounter type: initial encounter Fracture alignment: displaced Qualified Code(s): S72.142A - Displaced intertrochanteric fracture of left femur, initial encounter for closed fracture (2) Laceration of knee, left: Status: Acute Qualifiers: Encounter type: initial encounter Qualified Code(s): S81.012A - Laceration without foreign body, left knee, initial encounter (3) Chronic neck pain: Status: Acute Additional A&P Information Left hip fracture. complete displaced fracture through the left subtrochanteric femoral shaft with 6 cm overriding of the fracture fragments. dr Parikh is consulted. The patient is being [facility] to [facility]. We will continue pain management. Patient is postop. Patient had a left IM nail for subTrochanteric femur fracture. He is doing well. Will start clear liquids and advance diet as tolerated. Preoperative cardiac risk assessment. The patient does not have any history of coronary artery disease or CHF. Good functional status. METs above 4. EKG does not show any significant findings, no acute ischemia. In my opinion, the patient is ready for the surgery. No additional testing or treatments are required prior to the surgery. History of anxiety. We will resume his home medications. History of hypothyroidism and GERD. We will continue his home medications. DVT prophylaxis. Teds and SCDs. We will start DVT prophylaxis. CODE STATUS. He wants to be full code. The plan of care was discussed with the patient and his family. They verbalized understanding and agreement. Attestations Medical Necessity Statement*: > 24 hour stay. Will coordinate care with Dr. Parikh and discharge according to his recommendations. Medically patient is stable. 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
--- NOTE | 2020-12-26 13:05 | PC.NURSE ---
ROUNDING BOTH PT AND OT IN ROOM TO WORK WITH PT - PT DENIES CURRENT NEEDS
--- NOTE | 2020-12-26 13:54 | PC.NURSE ---
PT PREVIOUSLY UP WITH PT - AMBULATING IN [facility]LL - RETURNED TO BED
[2020-12-26] MEDS: baclofen 10 mg Tablet PO (14:10)
[2020-12-26] MEDS: gabapentin 300 mg Capsule PO ×2 (14:10→21:03)
--- NOTE | 2020-12-26 16:31 | ANE.PACU2 ---
Inpatient post-anesthesia follow up: Airway intact: Yes Vital signs: Temperature 97.7 F Pulse Rate 102 Respiratory Rate 16 Blood Pressure 130/82 Pulse Oximetry 97 Oxygen Delivery Me thod Room Air Oxygen Flow Rate 3 Fraction of Inspir ed Oxygen Hydration adequate: Yes Nausea and vomiting: No Pain level: 2
[2020-12-26] MEDS: acetaminophen 325 mg Tablet 650 MG PO (21:04)
[2020-12-26] MEDS: enoxaparin 40 mg/0.4 mL Syringe SUBCUT (21:04)
[2020-12-27] VITALS (7 sets, daily range): BP systolic 111–157; BP diastolic 68–90; PULSE 89–106; RESP 16–17; TEMP 36.6–37.7; O2SAT 91–97
[2020-12-27] MEDS: sodium chloride 0.9% 1,000 ML 75 ML IV (06:38)
--- NOTE | 2020-12-27 07:08 | PM.PN ---
Subjective Subjective: Interval history: patient doing well ambulatinef Vitals/I&O/Wt Last Vital Signs Temp 99.8 F H 12/27/20 04:00 Pulse 92 12/27/20 04:00 Resp 16 12/27/20 04:00 BP 111/68 12/27/20 04:00 Pulse Ox 94 12/27/20 04:00 12/26/20 12/27/20 12/27/20 22:59 06:59 14:59 Intake Total 180 / 1820 60 / 1880 Output Total 1500 / 1540 1300 / 2840 Balance -1320 / 280 -1240 / -960 Weight last 48 hrs Weight 195 lb Weight 195 lb Physical Exam Narrative: EXAM NARRATIVE: dressing cdi Data : 12/26/20 05:56 12/26/20 05:56 A&P Assessment and plan (1) Closed intertrochanteric fracture of left hip: left IM nail POD#1 OK to d/c from ortho stand point Status: Acute Qualifiers: Encounter type: initial encounter Fracture alignment: displaced Qualified Code(s): S72.142A - Displaced intertrochanteric fracture of left femur, initial encounter for closed fracture Attestations Medical Necessity Statement*: per primary service Coding Level of Care Code Acute Campus Security Officer for [facility] Diagnoses Closed intertrochanteric fracture of left hip S72.142A Encounter type: initial encounter Fracture alignment: displaced
[2020-12-27] MEDS: oxyCODONE-APAP 10-325 mg Tablet 1 TAB PO (09:32)
[2020-12-27] MEDS: levothyroxine 50 mcg Tablet PO (09:33)
[2020-12-27] MEDS: gabapentin 300 mg Capsule PO (09:33)
[2020-12-27] MEDS: duloxetine 60 mg Capsule 120 MG PO (09:33)
[2020-12-27] MEDS: pantoprazole DR 40 mg Tablet PO (09:33)
[2020-12-27] MEDS: atorvastatin 40 mg Tablet 20 MG PO (09:33)
[2020-12-27] MEDS: lisinopril 10 mg Tablet PO (09:33)
[2020-12-27] MEDS: acetaminophen 325 mg Tablet 650 MG PO (11:25)
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
== END 2020-12-27 13:33 | disposition home or self-care (01) | DRG 482 ==
LOC: ER 19:54 → MEDSURG 21:35
PROVIDERS: Orthopaedic Surgery; Admitting Provider Internal Medicine; Emergency Provider Emergency Medicine; PCP Family Medicine; Visit Provider Internal Medicine
PROC: 0QS706Z Reposition Left Upper Femur with Intramedullary Internal Fixation Device, Open Approach (ICD-10-PCS; CPT 27236; principal; 2020-12-26 08:00)
DX: S72.142A Displaced intertrochanteric fracture of left femur, initial encounter for closed fracture (principal); V48.2XXA Person on outside of car injured in noncollision transport accident in nontraffic accident, initial encounter; G89.29 Other chronic pain; M54.50 Low back pain, unspecified; M54.2 Cervicalgia; N52.9 Male erectile dysfunction, unspecified; F33.42 Major depressive disorder, recurrent, in full remission; F41.0 Panic disorder [episodic paroxysmal anxiety]; F41.9 Anxiety disorder, unspecified; E03.9 Hypothyroidism, unspecified; K21.9 Gastro-esophageal reflux disease without esophagitis; Z79.891 Long term (current) use of opiate analgesic
CPT/HCPCS: 36415; 71260; 72170; 73501; 73552; 73590; 74177; 76000; 80048; 80053; 81003; 83735; 84100; 85025; 85610; 85730; 87426; 90471; 90715; 93005; 96372; 96374; 96375; 97110; 97161; 97165; 97530; 99214; 99285; C1713; J0690; J1170; J1200; J1650; J2405; J2704; J3010; J7030; Q9967

== ENCOUNTER → 2021-01-18 11:01 | Outpatient (BNVA) | payer MEDICARE, SELFPAY | PROVIDERS: PCP Family Medicine; Visit Provider Physician Assistant | DX: Z98.890 Other specified postprocedural states (principal); S72.142D Displaced intertrochanteric fracture of left femur, subsequent encounter for closed fracture with routine healing; X58.XXXD Exposure to other specified factors, subsequent encounter | CPT/HCPCS: 73552 ==

== ENCOUNTER → 2021-02-15 13:11 | Outpatient (BNVA) | payer MEDICARE, SELFPAY | PROVIDERS: PCP Family Medicine; Visit Provider Physician Assistant | DX: Z98.890 Other specified postprocedural states (principal); S72.142A Displaced intertrochanteric fracture of left femur, initial encounter for closed fracture; X58.XXXA Exposure to other specified factors, initial encounter | CPT/HCPCS: 73502; 73552 ==

== ENCOUNTER → 2021-04-28 13:16 | Outpatient (BNVA) | payer MEDICARE, SELFPAY | PROVIDERS: PCP Family Medicine; Visit Provider Physician Assistant | DX: S72.142D Displaced intertrochanteric fracture of left femur, subsequent encounter for closed fracture with routine healing (principal); X58.XXXD Exposure to other specified factors, subsequent encounter; Z98.890 Other specified postprocedural states | CPT/HCPCS: 73502; 73552 ==

== ENCOUNTER → 2021-05-04 08:31 | Outpatient (BNVA) | payer MEDICARE, SELFPAY | PROVIDERS: PCP Family Medicine; Visit Provider Anesthesiology Pain Medicine | DX: G89.29 Other chronic pain (principal); M25.511 Pain in right shoulder; M48.02 Spinal stenosis, cervical region; M54.12 Radiculopathy, cervical region; F12.90 Cannabis use, unspecified, uncomplicated; Z79.891 Long term (current) use of opiate analgesic | CPT/HCPCS: 99214 ==

== ENCOUNTER → 2021-05-16 14:15 | Outpatient (BNVA) | payer MEDICARE, SELFPAY | PROVIDERS: PCP Family Medicine; Visit Provider Anesthesiology Pain Medicine | DX: F17.210 Nicotine dependence, cigarettes, uncomplicated (principal); Z79.891 Long term (current) use of opiate analgesic; M54.12 Radiculopathy, cervical region | CPT/HCPCS: 62321; J1030; J3490 ==

== ENCOUNTER → 2021-05-25 07:18 | Outpatient (BNVA) | payer MEDICARE, SELFPAY | PROVIDERS: PCP Family Medicine; Visit Provider Psychiatry & Neurology Psychiatry | DX: F33.42 Major depressive disorder, recurrent, in full remission (principal); F41.0 Panic disorder [episodic paroxysmal anxiety] | CPT/HCPCS: 99214 ==

== ENCOUNTER → 2021-05-30 08:45 | Outpatient (BNVA) | payer MEDICARE, SELFPAY | PROVIDERS: PCP Family Medicine; Visit Provider Anesthesiology Pain Medicine | DX: G89.29 Other chronic pain (principal); M48.02 Spinal stenosis, cervical region; M54.12 Radiculopathy, cervical region; M43.26 Fusion of spine, lumbar region; M79.601 Pain in right arm; M79.602 Pain in left arm; F17.210 Nicotine dependence, cigarettes, uncomplicated; Z79.891 Long term (current) use of opiate analgesic | CPT/HCPCS: 99214 ==

== ENCOUNTER 2021-07-18 13:57 | Outpatient (CLI) | payer MEDICARE, SELFPAY ==
--- NOTE | 2021-07-18 15:15 | MR_ITS ---
WS: [id number] MRI CERVICAL SPINE NONCONTRAST HISTORY: M54.12 - Radiculopathy, cervical region, RIGHT shoulder pain and arm. COMPARISON: 06/18/2020 Technique: Multiplanar, multisequence noncontrast imaging of the cervical spine. Mild increase in cervical lordosis and curvature. Disc spaces are moderately narrowed throughout with osteophytic ridging around the vertebral bodies and facet joint arthritis. Signal within the cervical cord is normal. Visualized posterior fossa is unremarkable. Craniocervical junction, C1 and C2 relationship, odontoid process and soft tissues are normal. C2-C3: Moderate diffuse osteophytic ridging and annular disc bulge with mild facet arthritis. There i s mild bilateral foraminal stenosis. C3-C4: Diffuse osteophytic ridging is asymmetric to the LEFT. There is a small disc osteophyte contac ts extending into the LEFT foramen, predominantly osteophyte causing a moderate LEFT foraminal stenos is although only mild on the RIGHT. Mild progression of LEFT foraminal stenosis since the prior study . C4-C5: Diffuse osteophytic ridging and annular disc bulging. Predominantly osteophytosis causing a mi ld central and moderate bilateral foraminal stenosis. Mild bilateral facet joint arthritis. Slightly greater narrowing of the LEFT foramen. C5-C6: Mild annular disc bulging and osteophytic ridging with facet joint arthritis. Moderate bilater al foraminal stenosis. There is significant encroachment into the proximal foramina bilaterally but g reatest on the RIGHT causing complete effacement of fat surrounding the RIGHT C6 nerve root. C6-C7: Diffuse annular disc bulging and osteophytic ridging. No central stenosis. Mild facet joint ar thritis. Mild bilateral foraminal stenosis. C7-T1: Normal. Paraspinal soft tissue are normal. MR/MR cervical spin wo con* [id number] IMPRESSION: 1. Mild progression of degenerative disc disease and osteophytosis since 021. 2. Moderate bilateral foraminal stenosis at C4-5, C5-6 and on the LEFT at C3-4 . Significant encroachment on the exiting nerve roots at each level. 3. Diffuse facet joint arthritis throughout the cervical spine. 4. Mild central stenosis at C4-5.
== END 2021-07-18 13:58 | disposition home or self-care (01) ==
PROVIDERS: PCP Family Medicine; Visit Provider Anesthesiology Pain Medicine
DX: M54.12 Radiculopathy, cervical region (principal)
CPT/HCPCS: 72141

== ENCOUNTER → 2021-07-19 10:41 | Outpatient (BNVA) | payer MEDICARE, SELFPAY | PROVIDERS: PCP Family Medicine; Visit Provider Anesthesiology Pain Medicine | DX: G89.29 Other chronic pain (principal); M48.02 Spinal stenosis, cervical region; M54.12 Radiculopathy, cervical region; M79.601 Pain in right arm; M79.602 Pain in left arm; F12.90 Cannabis use, unspecified, uncomplicated; Z79.891 Long term (current) use of opiate analgesic | CPT/HCPCS: 99214 ==

== ENCOUNTER → 2021-08-02 13:30 | Outpatient (BNVA) | payer MEDICARE, SELFPAY | PROVIDERS: PCP Family Medicine; Visit Provider Anesthesiology Pain Medicine | DX: Z79.891 Long term (current) use of opiate analgesic (principal); M47.812 Spondylosis without myelopathy or radiculopathy, cervical region | CPT/HCPCS: 64490; 64491; J3490 ==

== ENCOUNTER 2021-08-22 12:13 | Emergency (ER) | payer MEDICARE, SELFPAY ==
[2021-08-22 12:29] VITALS: BP 158/92; PULSE 63; RESP 18; TEMP 36.9; O2SAT 96; BMI 28.8
--- NOTE | 2021-08-22 13:29 | W.ED.ALLEREA ---
HPI - Allergic Reaction General: Chief complaint: Allergic Reaction Stated complaint: several Wasp Stings Time Seen by Provider: 08/22/21 13:04 History of Present Illness: HPI narrative: Patient is a 71-year-old male comes to the ED with right arm swelling and pain after wasp sting. Patient says last night he was out on his porch and couple wasp stung his right forearm. This morning he woke up with right arm swelling, redness and pain. He has been stung by wasp in the past and says he has not had any allergic reactions. Denies any other symptoms such as fever, chills, nausea/vomiting, shortness of breath, lip or tongue swelling or any trouble breathing. Associated symptoms: Deny abdominal pain, nausea or vomiting Review of Systems Const: Denies: fever(s), chills or fatigue Eyes: Denies: change in vision or eye discomfort ENMT: Denies: throat pain, odynophagia, nasal discharge or nasal congestion Card: Denies: chest pain, palpitations, edema, swelling of feet/ankles, dyspnea on exertion or orthopnea Resp: Denies: dyspnea, productive cough or non-productive cough GI: Denies: abdominal pain, nausea, vomiting, diarrhea, constipation or hematochezia : Denies: flank pain, difficulty urinating, dysuria or hematuria Musc: Denies: neck pain, back pain or extremity swelling Skin/Breast: Reports: rash (Erythema, swelling and tenderness of right forearm); Denies: new lesions Neuro: Denies: headache(s), numbness in extremities or weakness in extremities PFSH ED PFSH: Medical History Erectile dysfunction Gross hematuria Hematospermia High risk medication use Immunization counseling Inflammatory arthritis Major depression, recurrent, full remission Pain in both testicles Panic disorder Paraproteinemia Psychiatric care Renal cyst Surgical History H/O elbow surgery LEFT H/O inguinal hernia repair BILATERAL History of back surgery X3 Hx of appendectomy Hx of cholecystectomy Family History Father , AT AGE 73 Renal failure Mother , AT AGE 93 Stroke Other Cancer Rheumatoid arthritis Denies family history of Diabetes Lupus Chronic kidney disease (CKD) Lung disease Hypertension Social History Smoking and tobacco status: current every day smoker (MARIJUANA) Alcohol intake: current Alcohol intake frequency: holidays/special occasions only Alcohol type: beer Marital status: Current occupational status: retired and disabled History of recent travel: No Physical Exam Const: COMMON NORMALS: no acute distress, patient oriented x3 and alert GENERAL APPEARANCE: cooperative and comfortable HENMT: COMMON NORMALS: normocephalic HEAD & SCALP: normocephalic MOUTH: Normal oral and palatal mucosa present THROAT: posterior oropharynx normal and uvula midline Neck/C-Spine: COMMON NORMALS: supple GENERAL: Yes normal visual inspection Resp: COMMON NORMALS: normal respiratory effort, No retractions, No use of accessory muscles and clear to auscultation bilaterally AUSCULTATION: clear to auscultation bilaterally Cardio: COMMON NORMALS: regular rate, regular rhythm, S1 normal heart sound present, S2 normal heart sound present, No gallops present (Cardio), No clicks present (Cardio), No murmurs present (Cardio) and Peripheral pulses 2+ throughout RATE: regular rate RHYTHM: regular rhythm HEART SOUNDS: S1 normal heart sound present and S2 normal heart sound present PERIPHERAL PULSES: Peripheral pulses 2+ throughout GI: COMMON NORMALS: Normal to inspection, nondistended, normoactive bowel sounds present, Soft to palpation, non-tender and no masses PALPATION: Yes Soft to palpation : COMMON NORMALS: Yes no CVA tenderness BLADDER/KIDNEY EXAM: Yes no CVA tenderness Back/Pelvis: COMMON NORMALS: no CVA tenderness Extremity: NARRATIVE EXTREMITY EXAM: Right forearm?swelling in forearm and hand. Some erythema and warmth noted around wasp sting. Rash is tender to palpation. GENERAL: Yes normal exam except as noted Neuro: COMMON NORMALS: patient oriented x3 and moves all extremities SENSORIUM/ORIENTATION: Yes alert Skin: NARRATIVE SKIN EXAM: Right forearm?swelling in forearm and hand. Some erythema and warmth noted around wasp sting. Rash is tender to palpation. GENERAL SKIN EXAM: dry skin Course Vital Signs: Vital signs: Vital Signs Temperature 98.4 F 08/22/21 12:29 Pulse Rate 63 08/22/21 12:29 Respiratory Rate 18 08/22/21 12:29 Blood Pressure 158/92 08/22/21 12:29 Pulse Oximetry 96 08/22/21 12:29 MDM - Allergic Reaction Medical Decision Making Patient is a 71-year-old male comes to the ED with a wasp sting on right forearm. He has some erythema, warmth and swelling of the skin surrounding while staying. He also has some tenderness to palpation. Denies any allergy to wasp stings.Denies any other symptoms such as fever, chills, nausea/vomiting, shortness of breath, lip or tongue swelling or any trouble breathing. Vitals are stable. Patient diagnosed with sting from wasp, hornet or bee. He was given a dose of Solu-Medrol here in the ED and discharged home with a prescription for prednisone and cephalexin. Follow-up with PCP in the next 7 to 10 days for reevaluation. Return to ED precautions given. Patient stood agree with plan. Discharge Plan Discharge Patient Disposition: Home Clinical Impression: Sting from hornet, wasp, or bee Qualifiers: Encounter type: initial encounter Injury intent: accidental or unintentional Qualified Code(s): T63.451A - Toxic effect of venom of hornets, accidental (unintentional), initial encounter Condition: Stable Prescriptions: New cephalexin 500 mg capsule 500 mg PO Q6H 7 Days Qty: 28 0RF Medrol (Anastacio) 4 mg tablets,dose pack See Rx Instructions .ROUTE .COMPLEX Qty: 21 0RF Rx Instructions: orally per package directions No Action fluticasone prp-sod.chl,bicarb 50 mcg- 0.9 % kit,spray suspension and spray 1 spray intranasal .PRN PRN (Reason: Allergy Symptoms) 0RF lovastatin 20 mg tablet 20 mg PO DAILY 0RF lisinopril 10 mg tablet 10 mg PO DAILY 0RF levothyroxine 50 mcg tablet 50 mcg PO DAILY 0RF omeprazole 20 mg capsule,delayed release(DR/EC) 20 mg PO DAILY 0RF MARIJUANA PO 0RF bupivacaine (PF) 0.25 % (2.5 mg/mL) solution 1 ml Infiltration ONCE Qty: 1 0RF alprazolam [Xanax] 1 mg tablet 1 mg PO QID PRN (Reason: Anxiety) Qty: 120 5RF methylprednisolone acetate [Depo-Medrol] 80 mg/mL suspension 80 mg IM ONCE Qty: 1 0RF bupivacaine (PF) 0.25 % (2.5 mg/mL) solution 2 ml Infiltration ONCE Qty: 1 0RF trazodone 300 mg Tablet 300 mg PO DAILY 0RF Percocet 10-325 mg tablet 1 tab PO TID PRN (Reason: pain) Qty: 30 0RF Senna-S 8.6-50 mg tablet 1 tab-cap PO DAILY Qty: 20 0RF Percocet 10-325 mg tablet 1 tab PO Q8H Qty: 10 0RF aspirin 325 mg capsule 325 mg PO DAILY Qty: 14 0RF Discharge Orders: Discharge ED (Routine); Ordered 08/22/21 Ordered By: Samir Baxter Referrals: Pablito Russell [Primary Care Provider] - Discharge Diet: Regular Discharge Activity: Increase activity as tolerated Patient Instructions: Insect Bite or Sting (ED) Activity Restrictions/Additional Instructions: Follow-up with medical provider as directed in the next 5 to 7 days for reevaluation. Take medications as prescribed. You can start taking the prescribed steroid tomorrow since she received a dose here in the ED today. Continue taking Benadryl to help with symptoms as well. Return to the ER or your medical provider if condition worsens. Please read and understand discharge instructions. Thank you for choosing [facility] for your healthcare needs today. Please realize this is an emergency room and that we are providing you with a medical screening exam and this may not be complete and all inclusive of all the testing and or work up that you may need to determine your ailment or severity of your illness. It is very important that you follow up as instructed or that you return to the Emergency Department should you have concerns or if your condition changes or worsens in any way. Coding Level of Care Code ED Button Reclaimer for Brandie Gomez Exam Comprehensive
== END 2021-08-22 14:08 | disposition home or self-care (01) ==
PROVIDERS: Emergency Provider Physician Assistant; PCP Family Medicine
DX: T63.461A Toxic effect of venom of wasps, accidental (unintentional), initial encounter (principal)
CPT/HCPCS: 96372; 99284; J2930

== ENCOUNTER 2022-08-03 13:19 | Oncology outpatient (recurring) (ONCR) | payer MEDICARE, SELFPAY ==
[2022-08-03 13:39] VITALS: BP 137/78; PULSE 79; RESP 18; TEMP 36.6; O2SAT 95
[2022-08-03 14:02] LABS: Basophils % 0.8 %; Eosinophils # 0.1 10^3/uL (0.0-0.8); Eosinophils % 2.5 %; Hematocrit 41.7 % (42.0-52.0); Hemoglobin 14.2 g/dL (11.7-16.6); Lymphocytes # 1.7 10^3/uL (0.8-4.8); Lymphocytes % 35.1 %; Mean Corpuscular HGB Conc 34.1 g/dL (30.0-36.0); Mean Corpuscular Hemoglobin 30.9 pg (28.0-34.0); Mean Corpuscular Volume 90.8 fl (80-94); Mean Platelet Volume 9.7 fL (7.4-10.4); Monocytes # 0.2 10^3/uL (0.2-0.9); Neutrophils # 2.69 10^3/uL (1.8-7.7); Neutrophils % 56.4 %; Nucleated Red Blood Cells % 0 %; Platelet Count 145 10^3/cmm (130-400); Red Blood Count 4.59 10^6/uL (4.1-5.3); Red Cell Distribution Width 12.1 % (12.1-15.1); White Blood Count 4.8 10^3/uL (4.0-10.0)
[2022-08-03 14:28] LABS: Alanine Aminotransferase 11 U/L (0-41); Albumin Level 4.2 g/dL (3.5-5.2); Alkaline Phosphatase 58 U/L (40-130); Anion Gap 15.4 (5-19); Aspartate Amino Transferase 11 U/L (0-40); Blood Urea Nitrogen 13 mg/dL (8-23); Carbon Dioxide 23 mmol/L (22-29); Chloride 100 mmol/L (98-107); Globulin 3.3 g/dL (1.3-4.6); Glomerular Filtration Rate 59.9 mL/min (90-130); Glucose 167 mg/dL (65-115); Osmolality Calculated 282 mOsm/kg (285-295); Potassium 4.4 mmol/L (3.5-5.1); Sodium 134 mmol/L (136-145); Total Bilirubin 0.3 mg/dL (0.15-1.2); Total Protein 7.5 g/dL (6.6-8.7)
[2022-08-04 12:49] LABS: KAPPA LIGHT CHAIN, FREE, SERUM 38.7 mg/L (3.3-19.4); KAPPA/LAMBDA LIGHT CHAINS FREE 5.23 (0.26-1.65); LAMBDA LIGHT CHAIN, FREE, SERU 7.4 mg/L (5.7-26.3)
[2022-08-04 14:45] LABS: PROTEIN, TOTAL 7.4 g/dL (6.1-8.1)
[2022-08-04 16:09] LABS: ABNORMAL PROTEIN BAND 1 1.5 g/dL (NONE DETECTED); ALBUMIN 4.2 g/dL (3.8-4.8); ALPHA 1 GLOBULIN 0.3 g/dL (0.2-0.3); ALPHA 2 GLOBULIN 0.6 g/dL (0.5-0.9); BETA 1 GLOBULIN 0.4 g/dL (0.4-0.6); BETA 2 GLOBULIN 0.2 g/dL (0.2-0.5); GAMMA GLOBULIN 1.6 g/dL (0.8-1.7)
== END 2022-08-11 23:59 | disposition home or self-care (01) ==
PROVIDERS: PCP Family Medicine; Visit Provider Internal Medicine Hematology & Oncology
DX: D47.2 Monoclonal gammopathy (principal); R74.8 Abnormal levels of other serum enzymes; F17.210 Nicotine dependence, cigarettes, uncomplicated; Z79.899 Other long term (current) drug therapy
CPT/HCPCS: 36415; 80053; 83883; 84155; 84165; 85025; 86334; 99214

== ENCOUNTER → 2023-11-08 13:48 | Outpatient (BNVA) | payer OTHER, SELFPAY | PROVIDERS: PCP Family Medicine; Visit Provider Nurse Practitioner Family | DX: D48.5 Neoplasm of uncertain behavior of skin (principal); L30.9 Dermatitis, unspecified; L57.0 Actinic keratosis; L29.9 Pruritus, unspecified; D17.0 Benign lipomatous neoplasm of skin and subcutaneous tissue of head, face and neck | CPT/HCPCS: 11104; 17000; 99204 ==

== ENCOUNTER → 2023-11-20 11:22 | Outpatient (BNVA) | payer OTHER, SELFPAY | PROVIDERS: PCP Family Medicine; Visit Provider Nurse Practitioner Family | DX: D03.4 Melanoma in situ of scalp and neck (principal); L24.9 Irritant contact dermatitis, unspecified cause; L57.0 Actinic keratosis | CPT/HCPCS: 17000; 99213 ==

== ENCOUNTER → 2023-11-21 11:36 | Outpatient (BNVA) | payer OTHER, SELFPAY | PROVIDERS: PCP Family Medicine; Visit Provider Psychiatry & Neurology Psychiatry | DX: Z79.899 Other long term (current) drug therapy (principal) | CPT/HCPCS: 80306 ==

== ENCOUNTER → 2023-12-10 14:09 | Outpatient (BNVA) | payer OTHER, SELFPAY | PROVIDERS: PCP Family Medicine; Visit Provider Dermatology | DX: L82.1 Other seborrheic keratosis (principal); L02.821 Furuncle of head [any part, except face]; D03.4 Melanoma in situ of scalp and neck; L82.0 Inflamed seborrheic keratosis | CPT/HCPCS: 11622; 13121; 17110; 99213 ==

== ENCOUNTER → 2023-12-24 11:11 | Outpatient (BNVA) | payer OTHER, SELFPAY | PROVIDERS: PCP Family Medicine; Visit Provider Dermatology | DX: L82.1 Other seborrheic keratosis (principal); L81.4 Other melanin hyperpigmentation; D48.5 Neoplasm of uncertain behavior of skin; Z48.02 Encounter for removal of sutures | CPT/HCPCS: 11102; 99213 ==

== ENCOUNTER → 2024-03-04 10:56 | Outpatient (BNVA) | payer MEDICARE, SELFPAY | PROVIDERS: PCP Family Medicine; Visit Provider Nurse Practitioner Family | DX: L02.02 Furuncle of face (principal); L81.4 Other melanin hyperpigmentation; Z08 Encounter for follow-up examination after completed treatment for malignant neoplasm; Z86.006 Personal history of melanoma in-situ; L82.0 Inflamed seborrheic keratosis; R20.8 Other disturbances of skin sensation; L29.89 Other pruritus; D48.5 Neoplasm of uncertain behavior of skin; L57.0 Actinic keratosis | CPT/HCPCS: 11102; 17000; 17110; 99214 ==

== ENCOUNTER 2024-03-14 08:15 | Outpatient (CLI) | payer MEDICARE, SELFPAY ==
--- NOTE | 2024-03-14 | ECG_ITS ---
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 Interpretive Statements LEXISCAN: Procedure: At the baseline, the blood pressure was 111/82 mmHg with a heart rate of 60 bpm. The electrocardiogram showed normal sinus rhythm, normal axis with normal ST and T's. The Lexiscan was infused over a period of 20 seconds. A total of 0.4 mg of Lexiscan was infused. The stress phase was continued for a total of 5 minutes. Heart rate was at the end of stress phase was 69 bpm and a blood pressure of 107/74 mmHg. The EKG at the peak infusion revealed normal sinus rhythm with no significant ST-T wave changes. Sestamibi was injected 20 seconds after the Lexiscan infusion. Blood pressure at the end of recovery phase was 108/71 mmHg with a heart rate of 68 bpm. Conclusion: 1. Normal EKG response to Lexiscan infusion 2. No Lexiscan induced chest pain or cardiac arrhythmia. 3. Normal blood pressure and heart rate response. 4. Sestamibi/sestamibi perfusion scan pending; see separate report. Electronically Signed On 03-15-2024 23:45:06 GRAPHIC DESIGN PROFESSOR by Arie Blankenship M.D. [email or web address]
[2024-03-14 08:23] VITALS: BMI 29.5
--- NOTE | 2024-03-14 08:28 | NMCV_ITS ---
NM umu perf SPECT r/s* [id number] Waqar Moreno Age: 73 Gender: M : 1950 Exam Date: 03/14/2024 09:20 Ordering Phys: Pablito Russell Technologist: JAEL Parnell Exam Location: [facility] Indications: cp STRESS TEST Please see separate stress test report in [facility] for full findings IMAGE PROTOCOL Rest/Stress 1 Lexiscan Day Radiopharmaceutical Dose (mCi) Administration Site Administered by Rest: Tc-99m 10.7 IV JAEL Parnell Sestamibi Stress:Tc-99m 33 IV JAEL Chacon Sestamibi Rest: 14-Mar-2024 60 Discovery 630 Stress: 14-Mar-2024 30 Discovery 630 0.4mg Lexiscan. Images obtained in supine and prone position. SPECT RESULTS Technical Quality: Good Raw Data Analysis: Normal Image Corrections: No attenuation or motion correction applied Summed Stress Score: 6 Summed Rest Score: 8 Summed Difference Score: 0 PERFUSION FINDINGS Fixed perfusion defect noted in basal distal inferior and inferoseptal wall suggestive of old myocardial infarction versus scarring. FUNCTIONAL RESULTS (calculated via Gated SPECT) Stress Image LV EF (%): 68 Stress EDV (mL):85 TID: 1.2 Stress ESV (mL):27 FUNCTIONAL FINDINGS: There appeared to be basal to distal inferior wall akinesis.TID ratio is elevated which could be secondary to left ventricle hypertrophy/subendocardial ischemia however cannot rule out multivessel coronary artery disease. 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 This study is negative for ischemia. Jimena Rodriguez MD (Electronically Signed) Final Date: 14 March 2024 15:16 S
[2024-03-14] MEDS: regadenoson 0.4 Mg/5 ml Syringe IVP (09:50)
[2024-03-14 10:05] VITALS: BP 145/54; PULSE 68
== END 2024-03-14 08:16 | disposition home or self-care (01) ==
LOC: CDL 08:17
PROVIDERS: PCP Family Medicine; Visit Provider Family Medicine
DX: R07.9 Chest pain, unspecified (principal); R93.1 Abnormal findings on diagnostic imaging of heart and coronary circulation
CPT/HCPCS: 36415; 78452; 93017; 96374; A9500; J2785

== ENCOUNTER → 2024-05-07 13:19 | Outpatient (BNVA) | payer MEDICARE, SELFPAY | PROVIDERS: PCP Family Medicine; Visit Provider Dermatology | DX: L30.9 Dermatitis, unspecified (principal); D03.59 Melanoma in situ of other part of trunk; L82.0 Inflamed seborrheic keratosis | CPT/HCPCS: 11102; 11604; 12032; 17110; 99214 ==